=== PATIENT | female | born 1960 | race Caucasian/White ===

== ENCOUNTER → 2017-11-06 | Outpatient (CLI) | payer BC ==
[~2017-11-06] MED LIST: NORCO 325 MG-51 TAB PO; SYNTHROID0.175 MG PO
[2017-11-06 09:22] LABS: HEMATOCRIT 46.8 % (37.0-47.0); HEMOGLOBIN 16.2 g/dl (12.5-16.0); MEAN CELL VOLUME 87 fl (80.0-100.0); MEAN CORPUSCULAR HEMOGLOBIN 30 pg (27.0-31.0); MEAN CORPUSCULAR HGB CONC 35 g/dl (33.0-37.0); MEAN PLATELET VOLUME 9.6 fl (7.4-10.4); PLATELET COUNT 290 K/mm3 (130-400); RED BLOOD COUNT 5.36 M/mm3 (4.10-5.30); REDCELL DISTRIBUTION WIDTH-CV 12.1 % (11.5-14.5)
[2017-11-06 09:35] LABS: ALANINE AMINOTRANSFERASE 29 U/L (9-52); ALBUMIN 4.2 gm/dL (3.5-5.0); ALKALINE PHOSPHATASE 147 U/L (50-136); ANION GAP 14 mmol/L (7-16); AST,SGOT 23 U/L (15-37); BILIRUBIN,TOTAL 0.5 mg/dL (0.0-1.0); BLOOD UREA NITROGEN 14 mg/dL (7-17); CALCIUM 9.8 mg/dL (8.4-10.2); CARBON DIOXIDE 23 mmol/L (22-30); CHLORIDE 105 mmol/L (98-107); GLUCOSE 241 mg/dL (74-106); MAGNESIUM 1.8 mg/dL (1.6-2.3); POTASSIUM 4.3 mmol/L (3.4-5.0); SODIUM 142 mmol/L (137-145); TOTAL PROTEIN 8.4 gm/dL (6.4-8.2)
[2017-11-06 09:49] LABS: TROPONIN-I < 0.012 ng/mL (0.000-0.034)
[2017-11-06 10:06] LABS: THYROID STIMULATING HORMONE < 0.015 uIU/mL (0.465-4.680)
[2017-11-06 10:38] LABS: BAND 7 % (0-10); LYMPHOCYTE 9 % (20.0-51.0); NEUTROPHILS 82 % (42.0-75.2); PLATELET ESTIMATE NORMAL (NORMAL)
== END ==
LOC: COL.LAB 09:02
PROVIDERS: Internal Medicine
DX: R06.02 Shortness of breath (principal)

== ENCOUNTER → 2018-05-28 | Outpatient (CLI) | payer BC | LOC: MC.RAD 09:46 | DX: Z12.31 Encounter for screening mammogram for malignant neoplasm of breast (principal) ==

== ENCOUNTER 2018-06-12 06:33 | Day surgery (SDC) | payer BC ==
[~2018-06-12] VITALS: Ht 160 cm; Wt 93.5 kg
[2018-06-12 07:08] VITALS: BP 141/62; PULSE 62; TEMP 97.6
[2018-06-12] MEDS ORDERED: TIROSINT150 MC1 PO (07:40)
[2018-06-12] MEDS ORDERED: D3-5050000 IU PO (07:41)
[2018-06-12] MEDS ORDERED: ANTACID ULTRA1000 M1 PO (07:42)
[2018-06-12] MEDS ORDERED: B-121000 MCG PO (07:43)
[2018-06-12 08:40] VITALS: BP 150/87; PULSE 85; TEMP 98.1
[2018-06-12 08:45] VITALS: BP 133/76; PULSE 83
[2018-06-12 09:00] VITALS: BP 141/63; PULSE 82
[2018-06-12 09:15] VITALS: BP 141/74; PULSE 83
[2018-06-12 09:40] VITALS: BP 117/82; PULSE 64; TEMP 97.3
== END 2018-06-12 09:45 | disposition home or self-care (01) ==
LOC: SDCO 06:33
DX: Z12.11 Encounter for screening for malignant neoplasm of colon (principal); Z80.0 Family history of malignant neoplasm of digestive organs; Z88.0 Allergy status to penicillin; Z88.2 Allergy status to sulfonamides; Z83.79 Family history of other diseases of the digestive system
CPT/HCPCS: J2250; J3010; J7030

== ENCOUNTER → 2020-11-08 | Outpatient (CLI) | payer BC ==
[~2020-11-08] MED LIST changes: +ANTACID ULTRA1000 M1 PO; +B-121000 MCG PO; +D3-5050000 IU PO; +TIROSINT150 MC1 PO
== END ==
LOC: MC.RAD 11:45
DX: Z12.31 Encounter for screening mammogram for malignant neoplasm of breast (principal)